=== PATIENT | female | born 1985 | race Two or more races ===

== ENCOUNTER 2018-03-21 08:12 | Emergency (ER) | payer OTHER ==
[~2018-03-21] VITALS: Ht 162.6 cm; Wt 82.2 kg
[2018-03-21 09:00] LABS: BASOPHIL % 0.5 % (0-2); PLATELET COUNT 318 x10^3mcL (130-400)
[2018-03-21 09:07] LABS: microscopic required? YES; urine erythrocyte 1+ (NEGATIVE)
[2018-03-21 09:07] LABS: RED CELL DISTRIBUTION WIDTH 15.2 % (11.5-14.5)
[2018-03-21 10:22] VITALS: BP 110/68
== END 2018-03-21 10:22 | disposition home or self-care (01) ==
LOC: ED 08:12
PROVIDERS: Emergency Medicine
DX: O20.0 Threatened abortion (principal); O23.41 Unspecified infection of urinary tract in pregnancy, first trimester; Z3A.12 12 weeks gestation of pregnancy
CPT/HCPCS: 36415